=== PATIENT | female | born 1945 | race Caucasian/White ===

== ENCOUNTER → 2024-02-16 11:14 | Outpatient (REF) | payer MEDICARE, OTHER, SELFPAY | LOC: RAD 11:14 | PROVIDERS: ATTENDING PHYSICIAN Internal Medicine Critical Care Medicine; FAMILY PHYSICIAN Family Medicine | DX: R06.02 Shortness of breath (principal); R05.3 Chronic cough; R94.2 Abnormal results of pulmonary function studies | CPT/HCPCS: 71250 ==

== ENCOUNTER → 2024-02-22 13:22 | Outpatient (REF) | payer MEDICARE, OTHER, SELFPAY | LOC: RAD 13:22 | PROVIDERS: ATTENDING PHYSICIAN Internal Medicine Critical Care Medicine; FAMILY PHYSICIAN Family Medicine | DX: R06.02 Shortness of breath (principal); R05.3 Chronic cough; R94.2 Abnormal results of pulmonary function studies | CPT/HCPCS: 71046; 78582; A9540; A9567 ==